=== PATIENT | male | born 2000 | race Caucasian/White ===

== ENCOUNTER 2021-11-06 17:48 | Emergency (ER) | payer MEDICAID ==
[~2021-11-06] VITALS: Ht 157.5 cm; Wt 79.0 kg
[2021-11-06 17:51] VITALS: BP 115/46
[2021-11-06] MEDS ORDERED: TRANEXAMIC ACID 1,000 MG/10 ML TP ONE (19:00)
[2021-11-06] MEDS ORDERED: LIDOCAINE HCL/PF 1% 10 MG/ML 5ML VIAL INFIL ONE (20:30)
[2021-11-06] MEDS ORDERED: IBUPROFEN 600MG TABLET PO ONE (20:30)
[2021-11-06] MEDS ORDERED: LIDOCAINE HCL 1% 20ML VIAL (Pyxis) INJ INFIL NR (20:40)
[2021-11-06] MEDS ORDERED: IBUP-2029 MT (20:58)
[2021-11-06] MEDS ORDERED: CEPH500C2 MT (20:58)
== END 2021-11-06 21:29 | disposition home or self-care (01) ==
LOC: ER 17:48
DX: S61.012A Laceration without foreign body of left thumb without damage to nail, initial encounter (principal); W22.8XXA Striking against or struck by other objects, initial encounter; Y93.89 Activity, other specified; Y92.89 Other specified places as the place of occurrence of the external cause; Y99.0 Civilian activity done for income or pay
CPT/HCPCS: 12001; 99283; J3490

== ENCOUNTER 2021-11-11 21:29 | Emergency (ER) | payer MEDICAID ==
[~2021-11-11] VITALS: Ht 160 cm; Wt 73.0 kg
[~2021-11-11 21:29] MED LIST: CEPH500C2 MT; IBUP-2029 MT
[2021-11-11 22:12] VITALS: BP 127/74
== END 2021-11-11 22:26 | disposition home or self-care (01) ==
LOC: ER 21:29
DX: S61.012D Laceration without foreign body of left thumb without damage to nail, subsequent encounter (principal); Z48.00 Encounter for change or removal of nonsurgical wound dressing; X58.XXXD Exposure to other specified factors, subsequent encounter
CPT/HCPCS: 99281